=== PATIENT | female | born 1990 | race Caucasian/White ===

== ENCOUNTER → 2017-01-19 | Outpatient (CLI) | payer BC, MEDICARE ==
--- NOTE | 2017-01-19 15:09 | Diagnostic Imaging Report ---
PROCEDURE: US OB SINGLE FETUS <14 WKS. TECHNIQUE: Multiple real-time grayscale images were obtained over the gravid uterus in various projections. INDICATION: Size and dates. COMPARISON: None. FINDINGS: There is a single, live intrauterine with a crown-rump length measuring 2.2 cm, which is consistent with a five-week and six-day old fetus. heart rate was documented at 110 beats per minute. anatomy is not well seen at this early state of gestation. No adnexal masses are identified. Slightly complex corpus luteal cyst is noted on the left ovary. Otherwise, the ovaries are normal in appearance. The left ovary measures 2.6 x 2.6 x 2.3 cm, and the right measures 2.1 x 1.8 x 1.6 cm. There is trace free fluid in the cul-de-sac. CLINICAL DATES: Gestational age 6 weeks and 3 days ARIS is 09/11/2017 IMPRESSION: 1. Single, live intrauterine at 5 weeks and 6 days. Estimated due date is 09/15/2017. These are concordant with the clinical dates. No abnormality is seen at this time. 2. Trace free fluid. Dictated by: Dictated on workstation # [id number]
== END ==
LOC: RAD 14:14
PROVIDERS: ATTEND Obstetrics & Gynecology
DX: O36.80X0 Pregnancy with inconclusive fetal viability, not applicable or unspecified (principal); Z3A.01 Less than 8 weeks gestation of pregnancy
CPT/HCPCS: 76801